=== PATIENT | female | born 1935 | race Caucasian/White ===

== ENCOUNTER 2017-05-04 13:53 | Emergency (ER) | payer MEDICARE, BC ==
[2017-05-04 14:05] VITALS: BP 137/69
--- NOTE | 2017-05-04 15:10 | UC ---
Abdominal Pain Female HPI - HPI Summary HPI Summary: pt presents with c/o left lateral back and abdominal pain that began 1 week ago. Pt was seen by urologist 1 month ago and had ultrasound of kidneys. Left kidney is noted to have kidney stone. Pt denies urinary symptoms of frequency, urgency, hematuria, or dysuria.. Pt also has history of diverticulitis. Pt denies any blood in stool. Had 2 BM's this morning. - History of Current Complaint Chief Complaint: UCBackPain Stated Complaint: BACK PAIN Time Seen by Provider: 05/04/17 14:57 Hx Obtained From: Patient ?: No Onset/Duration: Sudden Onset, Lasting Days - 7 Timing: Constant Severity Initially: Mild Severity Currently: Mild Location: Discrete At: LLQ Radiates: No Character: Dull, Sharp Aggravating Factor(s): Other: - unsure Alleviating Factor(s): Nothing Associated Signs and Symptoms: Positive: Negative Simlar Episode/Dx as:: diverticulitis - Risk Factors Ectopic Risk Factor: Negative Ovarian Torsion Risk Factor: Negative Allergies/Adverse Reactions: Allergies Allergy/AdvReac Type Severity Reaction Status Date / Time Amoxicillin Allergy Unknown Verified 05/04/17 14:06 Reaction Details Clavulanic Acid Allergy Unknown Verified 05/04/17 14:06 [From Augmentin] Reaction Details Latex Allergy Rash Verified 10/13/14 13:19 Morphine Allergy Hives Verified 10/13/14 13:18 Sulfamethoxazole Allergy Cramping Verified 10/13/14 13:18 w/Trimethoprim in Hands [From Bactrim] Tetracycline Allergy Vomiting Verified 10/13/14 13:18 Home Medications: Home Medications Fluticasone Propionate (Nasal) [Allergy Nasal [place] 24 Ho] 50 mcg NASAL BID [History Confirmed 05/04/17] PMH/Surg Hx/FS Hx/Imm Hx Previously Healthy: Yes - pt is stable Cardiovascular History: Hypertension - Surgical History Surgical History: Yes Surgery Procedure, Year, and Place: kushal. kidney stone removal. R patella - Family History Known Family History: Positive: Cardiac Disease - Social History Occupation: Retired Lives: With Family Alcohol Use: None Substance Use Type: None Smoking Status (MU): Never Smoked Tobacco Have You Smoked in the Last Year: No - Immunization History Most Recent Influenza Vaccination: August 2014 Most Recent Pneumonia Vaccination: 2000 Review of Systems Constitutional: Negative Skin: Negative Eyes: Negative ENT: Negative Respiratory: Negative Cardiovascular: Negative Gastrointestinal: Abdominal Pain - LLQ Genitourinary: Negative Motor: Negative Neurovascular: Negative Musculoskeletal: Negative Neurological: Negative Psychological: Negative All Other Systems Reviewed And Are Negative: Yes Physical Exam Triage Information Reviewed: Yes Appearance: Well-Appearing Vital Signs: Initial Vital Signs Temp 99 F 05/04/17 13:58 Pulse 90 05/04/17 13:58 Resp 18 05/04/17 13:58 BP 137/69 05/04/17 13:58 Pulse Ox 95 05/04/17 13:58 Vital Signs Reviewed: Yes Eye Exam: Normal ENT Exam: Normal Neck exam: Normal Respiratory Exam: Normal Cardiovascular Exam: Normal Abdominal Exam: Other Abdomen Description: Positive: Other: - LLQ Bowel Sounds: Positive: Present Musculoskeletal Exam: Normal Neurological Exam: Normal Psychological Exam: Normal Skin Exam: Normal Abd Pain Female Course/Dx - Course Course Of Treatment: I discussed with the pt the negative results of her UA. I discussed with thept the possibility of a diverticulits and that she needs to follow up with her pCP as soon as possible. Pt verbalized understanding and agreed to plan of care - Differential Dx/Diagnosis Provider Diagnoses: abdominal pain. diverticulitis-? Discharge - Discharge Plan Condition: Stable Disposition: HOME Prescriptions: Ciprofloxacin HCl [Cipro 500 MG TAB] 500 mg PO Q12H #14 tab Metronidazole [Flagyl 500 MG TAB] 500 mg PO Q8H #21 tab Patient Education Materials: Diverticulitis (ED), Acute Abdominal Pain (ED), Diverticulitis Diet (ED) Referrals: Bruce Obrien DO [Primary Care Provider] - Additional Instructions: Please follow up with your PCP as soon as possible. If your symptoms worsen, please seek care as soon as possible.
== END 2017-05-04 15:26 | disposition home or self-care (01) ==
LOC: UCCORT 13:53
DX: R10.32 Left lower quadrant pain (principal); N20.0 Calculus of kidney
CPT/HCPCS: 81003; 99212; G0463

== ENCOUNTER 2018-07-03 11:12 | Emergency (ER) | payer MEDICARE, BC ==
[2018-07-03 11:37] VITALS: BP 154/75
--- NOTE | 2018-07-03 12:46 | UC ---
Skin Complaint HPI - HPI Summary HPI Summary: Pt c/o sudden onset of burning pain on dorsal aspect of right hand, then sudden onset swelling and bruising to dorsal aspect of right hand. - History of Current Complaint Chief Complaint: UCUpperExtremity Time Seen by Provider: 07/03/18 12:11 Stated Complaint: SWOLLEN/CONTUSION RIGHT HAND Hx Obtained From: Patient ?: No Onset/Duration: Sudden Onset, Lasting Hours, Still Present Skin Exposure Onset/Duration: Hours Ago Timing: Constant Onset Severity: Mild Current Severity: Severe Pain Intensity: 10 Location: Discrete, Hand (Right) Character: Swelling, Pain, Raised, Painful Aggravating Factor(s): Touch Alleviating Factor(s): Cold Compresses Associated Signs & Symptoms: Positive: Bruising, Tenderness - Allergy/Home Medications Allergies/Adverse Reactions: Allergies Allergy/AdvReac Type Severity Reaction Status Date / Time amoxicillin Allergy Unknown Unknown Verified 07/03/18 11:44 Reaction Details clavulanic acid Allergy Unknown Unknown Verified 07/03/18 11:44 [From Augmentin] Reaction Details latex Allergy Unknown Rash Verified 07/03/18 11:44 morphine Allergy Unknown Hives Verified 07/03/18 11:44 sulfamethoxazole Allergy Unknown CRAMPING Verified 07/03/18 11:44 [From Bactrim] IN HANDS Tetracyclines Allergy Unknown Vomiting Verified 07/03/18 11:44 trimethoprim [From Bactrim] Allergy Unknown CRAMPING Verified 07/03/18 11:44 IN HANDS Home Medications: Home Medications Cyanocobalamin (Vitamin B-12) [Vitamin B-12] 1,000 mcg PO 07/03/18 [History] Sawyer-3 Fatty Acids/Fish Oil [Fish Oil 1,000 mg Capsule] 1 each PO 07/03/18 [ History] Review of Systems Constitutional: Negative Skin: Bruising Eyes: Negative ENT: Negative Respiratory: Negative Cardiovascular: Negative Gastrointestinal: Negative Genitourinary: Negative Motor: Decreased ROM - right hand Neurovascular: Negative Musculoskeletal: Arthralgia, Decreased ROM, Edema, Myalgia Neurological: Negative Psychological: Negative Is Patient Immunocompromised?: No All Other Systems Reviewed And Are Negative: Yes PMH/Surg Hx/FS Hx/Imm Hx Previously Healthy: Yes Endocrine History: Thyroid Disease, Dyslipidemia Cardiovascular History: Cardiac Disease, Hypertension - Surgical History Surgical History: Yes Surgery Procedure, Year, and Place: kushal. kidney stone removal. R patella - Family History Known Family History: Positive: Cardiac Disease - Social History Occupation: Retired Lives: With Family Alcohol Use: None Substance Use Type: None Smoking Status (MU): Never Smoked Tobacco Have You Smoked in the Last Year: No - Immunization History Most Recent Influenza Vaccination: August 2014 Most Recent Pneumonia Vaccination: 2000 Physical Exam Triage Information Reviewed: Yes Appearance: Well-Appearing Vital Signs: Initial Vital Signs Temp 99 F 07/03/18 11:31 Pulse 84 07/03/18 11:31 Resp 18 07/03/18 11:31 BP 154/75 07/03/18 11:31 Pulse Ox 97 07/03/18 11:31 Vital Signs Reviewed: Yes Eye Exam: Normal ENT: Positive: Hearing grossly normal Dental Exam: Normal Neck exam: Normal Respiratory Exam: Normal Respiratory: Positive: No respiratory distress Cardiovascular Exam: Normal Musculoskeletal: Positive: Edema @ - right dorsal aspect of hand, Neurological Exam: Normal Psychological Exam: Normal Skin Exam: Other - bruising, swelling right aspect of hand, soft, tender bruising measuring 8.5 width cm X 6 cm length X 3 cm height Diagnostics - Laboratory Diagnostic Studies Completed/Ordered: ultrasound: REPORT AND IMPRESSION: #. Corresponding with the region of clinical lump there is a 4.1 x 1.6 x 3.1 cm complex. avascular fluid collection consistent with hematoma given the clinical context. Resulting. deformity/convexity of the overlying skin contour. Course/Dx - Diagnoses Provider Diagnoses: hematoma right hand Discharge - Sign-Out/Discharge Documenting (check all that apply): Patient Departure All imaging exams completed and their final reports reviewed: Yes - Discharge Plan Condition: Stable Disposition: HOME Patient Education Materials: Hematoma (ED) Referrals: Familia WARREN,Aryan Marsh [Medical Doctor] - Bruce Obrien DO [Primary Care Provider] - If Needed Xiomara Hines MD [Medical Doctor] - - Billing Disposition and Condition Condition: STABLE Disposition: Home - Attestation Statements Provider Attestation: I was available for consult. This patient was seen by the BOU[facility]. The patient was not presented to, seen by, or examined by me. -Whitney
--- NOTE | 2018-07-03 13:18 | RAD ---
Indication: Spontaneous lump/[place] RIGHT hand. Comparison: No relevant prior exams available on the [facility] PACS for comparison.. Technique: Musculoskeletal ultrasound. Ultrasound over the dorsal aspect of the RIGHT hand corresponding with the region of the lump.. REPORT AND IMPRESSION: #. Corresponding with the region of clinical lump there is a 4.1 x 1.6 x 3.1 cm complex avascular fluid collection consistent with hematoma given the clinical context. Resulting deformity/convexity of the overlying skin contour.
== END 2018-07-03 13:34 | disposition home or self-care (01) ==
LOC: UCCORT 11:12
DX: S60.221A Contusion of right hand, initial encounter (principal); X58.XXXA Exposure to other specified factors, initial encounter; Y92.9 Unspecified place or not applicable; Z88.2 Allergy status to sulfonamides; Z88.6 Allergy status to analgesic agent; Z88.1 Allergy status to other antibiotic agents; Z91.040 Latex allergy status
CPT/HCPCS: 99211; G0463

== ENCOUNTER 2022-07-18 16:18 | Observation (INO) ==
[2022-07-18 16:56] LABS: ABS Eosinophils 0.2 10^3/ul (0-0.6); ABS Lymphocytes 2.4 10^3/ul (1.0-4.8); ABS Monocytes 0.8 10^3/ul (0-0.8); ABS Neutrophils 4.9 10^3/ul (1.5-7.7); Eosinophil % 2.2 %; Hematocrit 34 % (35-47); Hemoglobin 11.1 g/dL (12.0-16.0); Lymphocyte % 28.5 %; Mean Corpuscular HGB Conc 33 g/dL (31-36); Mean Corpuscular Hemoglobin 29 pg (27-31); Mean Corpuscular Volume 87 fL (80-97); Mean Platelet Volume 8.1 fL (7.4-10.4); Nucleated Red Blood Cells % 0.1; Platelet Count 217 10^3/uL (150-450); Red Blood Count 3.88 10^6 /uL (3.70-4.87); Red Cell Distribution Width 15 % (10-15); White Blood Count 8.3 10^3/uL (3.5-10.8)
[2022-07-18 17:45] LABS: Albumin 4.1 g/dL (3.2-5.2); Albumin/Globulin Ratio 1.8 (1-3); Calcium 8.4 mg/dL (8.6-10.3); Globulin 2.3 g/dL (2-4); Total Bilirubin 0.3 mg/dL (0.2-1.0); Total Protein 6.4 g/dL (6.4-8.9); eGFR CKD-EPI 43.4 (>60)
[2022-07-18 18:19] LABS: High Sensitivity Troponin 1 Hr 6 pg/mL (<15)
[2022-07-18] MEDS ORDERED: Nitroglycerin 0.2 mg/hr PATCH (5 mg) TRANSDERM ONE (19:14)
[2022-07-18] MEDS ORDERED: Iodixanol (CONTRAST) 320 MG/ML 100 ML SDV IV ONE (21:31)
[2022-07-18 22:10] LABS: High Sensitivity Troponin 3 Hr 6 pg/mL (<15)
[2022-07-19] MEDS ORDERED: Enoxaparin 40 MG/0.4 ML SYR SUBCUT SCH (01:00)
[2022-07-19] MEDS ORDERED: Enoxaparin 30 MG/0.3 ML SYR SUBCUT SCH (03:00)
[2022-07-19] MEDS: Enoxaparin 30 MG/0.3 ML SYR SUBCUT SCH (03:14)
[2022-07-19 06:29] LABS: INR 1.03 (0.89-1.11)
[2022-07-19 06:57] LABS: Calcium 8.1 mg/dL (8.6-10.3); HDL Cholesterol 45.6 mg/dL; Potassium 4.2 mmol/L (3.5-5.0); eGFR CKD-EPI 46.6 (>60)
[2022-07-19 07:09] LABS: TSH Ultra Thyroid Stim Horm 2.96 mcIU/mL (0.34-5.60)
[2022-07-19] MEDS ORDERED: Regadenoson 0.4 MG/5 ML SYRINGE ONE (08:49)
[2022-07-19] MEDS ORDERED: Aminophylline 25 MG/ML VIAL ONE (08:49)
[2022-07-19] MEDS: Aspirin EC 81 mg TAB.EC (enteric coated) PO SCH (09:55)
[2022-07-19] MEDS: CMCS: OMEGA-3 FATTY ACID 1000 mg(NF) PO SCH (12:35)
[2022-07-20] MEDS: Enoxaparin 30 MG/0.3 ML SYR SUBCUT SCH (05:34)
[2022-07-20] MEDS: Aspirin EC 81 mg TAB.EC (enteric coated) PO SCH (09:06)
[2022-07-20] MEDS: CMCS: OMEGA-3 FATTY ACID 1000 mg(NF) PO SCH (09:07)
[2022-07-20 11:00] VITALS: BP 150/69
== END 2022-07-20 12:20 | disposition home or self-care (01) ==
LOC: ED 16:18 → EDHOLD 16:18 → MEDTELE 07-19 11:55
PROVIDERS: ADMIT Internal Medicine; ATTEND Internal Medicine